=== PATIENT | male | born 1950 | race Caucasian/White ===

== ENCOUNTER 2018-12-18 07:45 | Inpatient (IN) | payer OTHER ==
[~2018-12-18] VITALS: Ht 177.8 cm; Wt 77.1 kg
[2018-12-18] MEDS ORDERED: SYNTHROID PO (10:24)
[2018-12-18] MEDS ORDERED: PROSCAR5 MG PO (10:24)
[2018-12-18] MEDS ORDERED: JARDIANCE25 MG PO (10:24)
[2018-12-18] MEDS ORDERED: CARDURA8 MG PO (10:25)
[2018-12-18] MEDS ORDERED: LEVEMIR100 UNIT/1 (10:28)
[2018-12-22] MEDS ORDERED: SYNTHROID175 MCG PO (08:25)
[2018-12-25] MEDS ORDERED: ULTRACET PO (12:22)
== END 2018-12-25 14:45 | disposition home or self-care (01) | DRG 330 ==
LOC: O/R 12-22 06:21 → SURG 12-22 06:21 → SURH 12-22 07:45 → MEDI 12-22 17:06 → SURG 12-22 17:51
PROVIDERS: ADMIT Surgery
PROC: 07TC4ZZ Resection of Pelvis Lymphatic, Percutaneous Endoscopic Approach (ICD-10-PCS; 2018-12-22)
PROC: 0FT44ZZ Resection of Gallbladder, Percutaneous Endoscopic Approach (ICD-10-PCS; 2018-12-22)
PROC: 0DJD8ZZ Inspection of Lower Intestinal Tract, Via Natural or Artificial Opening Endoscopic (ICD-10-PCS; 2018-12-22)
PROC: BF12YZZ Fluoroscopy of Gallbladder using Other Contrast (ICD-10-PCS; 2018-12-22)
PROC: 0DTN4ZZ Resection of Sigmoid Colon, Percutaneous Endoscopic Approach (ICD-10-PCS; principal; 2018-12-22 08:30)
PROC: 0DTP4ZZ Resection of Rectum, Percutaneous Endoscopic Approach (ICD-10-PCS; 2018-12-22 08:30)
DX: C20 Malignant neoplasm of rectum (principal); K80.00 Calculus of gallbladder with acute cholecystitis without obstruction; C77.5 Secondary and unspecified malignant neoplasm of intrapelvic lymph nodes; E11.9 Type 2 diabetes mellitus without complications; Z79.4 Long term (current) use of insulin; N40.0 Benign prostatic hyperplasia without lower urinary tract symptoms; K63.89 Other specified diseases of intestine; I11.0 Hypertensive heart disease with heart failure; E03.8 Other specified hypothyroidism

== ENCOUNTER 2019-02-12 09:15 | Inpatient (IN) | payer OTHER ==
[~2019-02-12] VITALS: Ht 177.8 cm; Wt 77.1 kg
[~2019-02-12 09:15] MED LIST: CARDURA8 MG PO; JARDIANCE25 MG PO; LEVEMIR100 UNIT/1; PROSCAR5 MG PO; SYNTHROID PO; SYNTHROID175 MCG PO; ULTRACET PO
[2019-02-19] MEDS ORDERED: INTESTINEX680 M1 PO (07:33)
[2019-02-19] MEDS ORDERED: ULTRACET PO (07:33)
[2019-02-19] MEDS ORDERED: LEVSIN/SL0.125 MG SL (07:34)
[2019-02-19] MEDS ORDERED: QUESTRAN PACKET4 GM PO (07:34)
== END 2019-02-19 10:46 | disposition home or self-care (01) | DRG 330 ==
LOC: O/R 02-16 06:42 → SURH 02-16 06:42
PROVIDERS: ADMIT Surgery
PROC: 0T9B70Z Drainage of Bladder with Drainage Device, Via Natural or Artificial Opening (ICD-10-PCS; 2019-02-16)
PROC: 0DQB4ZZ Repair Ileum, Percutaneous Endoscopic Approach (ICD-10-PCS; principal; 2019-02-16 07:00)
DX: Z43.2 Encounter for attention to ileostomy (principal); C20 Malignant neoplasm of rectum; E11.9 Type 2 diabetes mellitus without complications; Z79.4 Long term (current) use of insulin; E03.8 Other specified hypothyroidism; I11.9 Hypertensive heart disease without heart failure; N40.0 Benign prostatic hyperplasia without lower urinary tract symptoms; K80.20 Calculus of gallbladder without cholecystitis without obstruction

== ENCOUNTER 2019-04-20 12:50 | Inpatient (IN) | payer OTHER ==
[~2019-04-20] VITALS: Ht 177.8 cm; Wt 77.1 kg
[~2019-04-20 12:50] MED LIST changes: +INTESTINEX680 M1 PO; +LEVSIN/SL0.125 MG SL; +QUESTRAN PACKET4 GM PO
[2019-04-21] MEDS ORDERED: SYNTHROID175 MCG PO (14:35)
[2019-04-21] MEDS ORDERED: CHOLESTYRAMINE P4 GM PO (14:37)
[2019-04-25] MEDS ORDERED: CIPRO500 MG PO (13:07)
[2019-04-25] MEDS ORDERED: FLAGYL500MG PO (13:07)
== END 2019-04-25 13:16 | disposition home or self-care (01) | DRG 329 ==
LOC: ER 12:50 → SURH 14:01 → SURG 14:01 → SURH 16:44
PROVIDERS: ADMIT Surgery
PROC: 0DJD8ZZ Inspection of Lower Intestinal Tract, Via Natural or Artificial Opening Endoscopic (ICD-10-PCS; 2019-04-21)
PROC: 3E1M38Z Irrigation of Peritoneal Cavity using Irrigating Substance, Percutaneous Approach (ICD-10-PCS; 2019-04-22)
PROC: 05H633Z Insertion of Infusion Device into Left Subclavian Vein, Percutaneous Approach (ICD-10-PCS; 2019-04-22)
PROC: 0D1L4Z4 Bypass Transverse Colon to Cutaneous, Percutaneous Endoscopic Approach (ICD-10-PCS; principal; 2019-04-22 13:30)
DX: K91.89 Other postprocedural complications and disorders of digestive system (principal); K65.1 Peritoneal abscess; C20 Malignant neoplasm of rectum; K56.690 Other partial intestinal obstruction; T81.43XA Infection following a procedure, organ and space surgical site, initial encounter; K66.0 Peritoneal adhesions (postprocedural) (postinfection); K59.09 Other constipation; I11.9 Hypertensive heart disease without heart failure; E87.6 Hypokalemia; E11.9 Type 2 diabetes mellitus without complications; E03.8 Other specified hypothyroidism; N40.0 Benign prostatic hyperplasia without lower urinary tract symptoms

== ENCOUNTER 2019-10-27 16:28 | Inpatient (IN) | payer OTHER ==
[~2019-10-27] VITALS: Ht 177.8 cm; Wt 77.1 kg
[~2019-10-27 16:28] MED LIST changes: +CHOLESTYRAMINE P4 GM PO; +CIPRO500 MG PO; +FLAGYL500MG PO
[2019-11-18] MEDS ORDERED: RELAFEN PO (10:53)
[2019-11-18] MEDS ORDERED: ULTRAM50 MG PO (10:53)
[2019-11-18] MEDS ORDERED: GABAPENTIN300 M2 PO (10:54)
[2019-11-18] MEDS ORDERED: ELIQUIS2.5 MG PO (10:54)
[2019-11-23] MEDS ORDERED: NABUMETONE750 MG PO (11:27)
[2019-11-25] MEDS ORDERED: LIDODERM1 EACH TOP (14:22)
[2019-11-25] MEDS ORDERED: ELIQUIS2.5 MG PO (14:22)
[2019-11-25] MEDS ORDERED: ZOLPIDEM TARTRAT5 MG PO (14:22)
== END 2019-11-25 15:16 | disposition home health service (06) | DRG 330 ==
LOC: O/R 11-23 08:52 → SURG 11-23 08:52 → RECOVERY 11-23 10:00 → SURG 11-23 13:56
PROVIDERS: ADMIT Surgery
PROC: 0DBP4ZZ Excision of Rectum, Percutaneous Endoscopic Approach (ICD-10-PCS; 2019-11-23)
PROC: 3E0T3BZ Introduction of Anesthetic Agent into Peripheral Nerves and Plexi, Percutaneous Approach (ICD-10-PCS; 2019-11-23)
PROC: 0D1 Gastrointestinal System, Bypass (ICD-10-PCS; principal; 2019-11-23 12:15)
PROC: 30233N1 Transfusion of Nonautologous Red Blood Cells into Peripheral Vein, Percutaneous Approach (ICD-10-PCS; 2019-11-24)
PROC: B54CZZZ Ultrasonography of Left Lower Extremity Veins (ICD-10-PCS; 2019-11-25)
DX: C20 Malignant neoplasm of rectum (principal); R18.0 Malignant ascites; K56.52 Intestinal adhesions [bands] with complete obstruction; C77.5 Secondary and unspecified malignant neoplasm of intrapelvic lymph nodes; D62 Acute posthemorrhagic anemia; N17.8 Other acute kidney failure; I80.232 Phlebitis and thrombophlebitis of left tibial vein; E11.9 Type 2 diabetes mellitus without complications; I11.9 Hypertensive heart disease without heart failure; E03.8 Other specified hypothyroidism; N40.0 Benign prostatic hyperplasia without lower urinary tract symptoms; K63.89 Other specified diseases of intestine; Z93.2 Ileostomy status; Z79.4 Long term (current) use of insulin